=== PATIENT | male | born 1985 | race Caucasian/White ===

== ENCOUNTER 2019-05-27 09:59 | Outpatient (CLI) | payer BC, SELFPAY ==
[2019-05-27 10:34] LABS: Basophils % 0.4 %; Eosinophils # 0.2 10^3/uL (0.0-0.8); Eosinophils % 2.5 %; Hematocrit 42.2 % (42.0-52.0); Hemoglobin 14.8 g/dL (11.7-16.6); Lymphocytes # 1.9 10^3/uL (0.8-4.8); Lymphocytes % 27.6 %; Mean Corpuscular HGB Conc 35.1 g/dL (30.0-36.0); Mean Corpuscular Hemoglobin 30.3 pg (28.0-34.0); Mean Corpuscular Volume 86.5 fL (80-94); Mean Platelet Volume 9.9 fL (7.4-10.4); Monocytes # 0.5 10^3/uL (0.2-0.9); Monocytes % 7.8 %; Neutrophils # 4.2 10^3/uL (1.8-7.7); Neutrophils % 61.1 %; Nucleated Red Blood Cells % 0 %; Platelet Count 233 10^3/cmm (130-400); Red Blood Count 4.88 10^6/uL (4.1-5.3); Red Cell Distribution Width 12.6 % (12.1-15.1); White Blood Count 6.8 10^3/uL (4.0-10.0)
[2019-05-27 11:02] LABS: Alanine Aminotransferase 34 U/L (0-41); Albumin Level 4.6 g/dL (3.5-5.2); Alkaline Phosphatase 101 IU/L (40-130); Anion Gap 13.3 (5-19); Aspartate Amino Transferase 21 U/L (0-40); Blood Urea Nitrogen 18 mg/dL (6-20); Calcium 9.8 mg/dL (8.5-10.5); Carbon Dioxide 29 mmol/L (22-29); Chloride 101 mmol/L (98-107); Chol HDL Ratio 3.67 mg/dL (1.0-5.00); Cholesterol 165 mg/dL (0-200); Free T4 Free Thyroxine 1.13 ng/dL (0.82-1.77); Globulin 2.6 g/dL (1.3-4.6); Glomerular Filtration Rate 112.8 mL/min (90-130); Glucose 106 mg/dL (74-109); Glucose Fasting 106 mg/dL (74-109); HDL Cholesterol 45 mg/dL (60-100); LDL Cholesterol Calculated 90 mg/dL (50-129); Potassium 4.3 mmol/L (3.5-5.1); Sodium 139 mmol/L (136-145); T3 Free 4.4 PG/ML (2.0-4.4); Thyroid Stimulating Hormone 1.23 uIU/mL (0.27-4.20); Total Bilirubin 0.6 mg/dL (0.15-1.2); Total Protein 7.2 g/dL (6.6-8.7); Triglycerides 148 mg/dL (0-150)
== END 2019-05-27 10:00 | disposition home or self-care (01) ==
LOC: LAB 10:05
PROVIDERS: Family Provider Nurse Practitioner Family; PCP Physician Assistant Medical; Visit Provider Nurse Practitioner Family
DX: Z79.899 Other long term (current) drug therapy (principal)
CPT/HCPCS: 36415; 80053; 80061; 82947; 84439; 84443; 84481; 85025

== ENCOUNTER 2019-09-23 08:38 | Day surgery (SDC) | payer BC, SELFPAY ==
[2019-09-21 13:33] VITALS: BMI 29.2
[2019-09-23 08:57] VITALS: BP 137/85; PULSE 87; RESP 18; TEMP 36.7; O2SAT 96
--- NOTE | 2019-09-23 09:25 | W.PM.OPSUD ---
Surgery/Procedure H&P Update DATE OF PROCEDURE: September 23, 2019 DATE H&P PERFORMED: 09/03/19 H&P UPDATE INFORMATION: I have reviewed H&P completed within last 30 days, I have examined patient prior to procedure and No changes to prior documentation PREOP DIAGNOSIS: Chronic diarrhea, epigastric pain PLANNED PROCEDURE: Operation Date: 09/23/19 09:55 Proposed Procedures p EGD 25920 R10.9(Not Applicable) - Petar Newman MD s Colonoscopy 06310 R19.7(Not Applicable) - Petar Newman MD
[2019-09-23] MEDS: sodium chloride 0.9% 1,000 ML 30 ML IV (09:31)
--- NOTE | 2019-09-23 09:40 | ANES.PREANE2 ---
Pre-Anesthetic Assessment Pre-Anesthetic Assessment: Height/Weight: Height 1.78 m Weight 92.533 kg Temp Pulse Resp BP Pulse Ox 98.1 F 87 18 137/85 96 09/23/19 08:57 09/23/19 08:57 09/23/19 08:57 09/23/19 08:57 09/23/19 08:57 Preop Diagnosis: Chronic diarrhea, epigastric pain Proposed Procedure: Operation Date: 09/23/19 09:55 Proposed Procedures p EGD 14402 R10.9(Not Applicable) - Petar Newman MD s Colonoscopy 89756 R19.7(Not Applicable) - Petar Newman MD Last intake: Intake Last Liquid Date 09/22/19 Last Liquid Time 22:00 Last Solid Date 09/21/19 Social: Social History: No alcohol and No tobacco Exam: Pre-Anes Outpt Exam: alert, oriented x 3, clear to auscultation bilaterally and regular rate & rhythm Airway: Submandibular: WNL Cervical ROM: WNL MP: 2 Dentition: Other (teeth ok) History/ROS: No significant history except as noted Pulmonary: Pulmonary: None reported CV/HEM: CV/HEM: None reported : : None reported Hepatic: Hepatic: None reported GI: GI: GERD Metabolic: Metabolic: None reported Musc/skel: Musc/skel: OA/DJD Neuropsych: Neuropsych: Anxiety and Depression Anesthetic Plan: ASA status: 3 Anesthesia: Anesthesia Evaluation and MAC Risk of > 500 ml blood loss (7ml/kg in children): No Meds/Allergies Current Medications: Current Medications Generic Name Dose Route Start Last Admin Trade Name Freq PRN Reason Stop Dose Admin Sodium Chloride 1,000 mls @ 30 ml s/hr 09/23/19 08:45 09/23/19 09:31 Sodium Chloride 0.9% IV 30 mls/hr .Q24H TREMAYNE Administration PFSH Anesthesia PFSH: Medical History Depression with anxiety Diarrhea Surgical History History of incision and drainage Family History Family/Other Cancer PANCREATIC/LIVER Denies family history of Anesthesia complication Bleeding disorder Social History Smoking and tobacco status: never smoked Second hand smoke exposure: No Alcohol intake: never Adopted: No Caregiver/support person: Yes Lives independently: Yes Household members: spouse Housing: House Data Anesthesia Cardiac Studies: No Data to Display
--- NOTE | 2019-09-23 10:38 | ANE.PACU2 ---
Inpatient post-anesthesia follow up: Airway intact: Yes Vital signs: Temperature 98.1 F Pulse Rate 87 Respiratory Rate 18 Blood Pressure 137/85 Pulse Oximetry 96 Oxygen Delivery Me thod Room Air Oxygen Flow Rate Fraction of Inspir ed Oxygen Hydration adequate: Yes Nausea and vomiting: No Pain level: 1 Mental status: Baseline
== END 2019-09-23 11:12 | disposition home or self-care (01) ==
PROVIDERS: Visit Provider Surgery
PROC: 0DJ08ZZ Inspection of Upper Intestinal Tract, Via Natural or Artificial Opening Endoscopic (ICD-10-PCS; CPT 43235; principal; 2019-09-23 09:55)
PROC: 0DJD8ZZ Inspection of Lower Intestinal Tract, Via Natural or Artificial Opening Endoscopic (ICD-10-PCS; CPT 45378; 2019-09-23 09:55)
DX: K52.9 Noninfective gastroenteritis and colitis, unspecified (principal); R10.13 Epigastric pain; K29.70 Gastritis, unspecified, without bleeding; K21.9 Gastro-esophageal reflux disease without esophagitis; M19.90 Unspecified osteoarthritis, unspecified site
CPT/HCPCS: 12345; 43239; 45380; 82274; 83630; 87493; 87506; 88305; J2704; J7030

== ENCOUNTER 2021-06-09 20:19 | Emergency (ER) | payer BC, SELFPAY ==
[2021-06-09 20:25] VITALS: BP 146/79; PULSE 95; RESP 16; TEMP 36.5; O2SAT 98; BMI 29.6
[2021-06-09 20:56] LABS: Add Urine Microscopic? NO; Charge for UA Resulting for Rev
[2021-06-09 21:04] LABS: Bilirubin Urine Neg (Negative); Blood Urine Neg (Negative); Glucose Urine UA Norm (Normal); Ketones Urine Negative (Negative); Leukocyte Esterase Urine Negative (Negative); Nitrate Urine Negative (Negative); Protein Urine Neg (Negative); Specific Gravity, Urine 1.025 (1.005-1.030); Urine Appearance Clear (CLEAR); Urine Color Yellow (Yellow); Urobilinogen Urine Norm (Negative); pH Urine 5 (5-7)
--- NOTE | 2021-06-09 21:42 | W.ED.MALEGU ---
HPI - Male Genitourinary General: Chief complaint: Urogenital-Male Stated complaint: kidney stone Time Seen by Provider: 06/09/21 21:42 History of Present Illness: Mr. Luna is a 36-year-old gentleman with history of hypertension, psychiatric disorder who presents emergency department due to penile pain. He reports for a number of months now he has had slowly decreasing urinary stream and difficulty with initiation and incomplete emptying. He has subsequently developed a few episodes of sharp/burning pain in his penis. These occasionally occur with urination however also occur other times. There is no radiation of the testicles. He denies specific provoking factors. There is no skin lesions or penile discharge. He denies frequent history of similar. Intensity of symptoms when present is moderate to severe. He also has developed difficulty maintaining an erection. He previously was seen by PCP and had a reportedly normal urinalysis and blood work however symptoms have continued, no imaging was performed at that time. Onset (ago): day(s) Duration: intermittent Location: penis Severity: severe Quality: burning and sharp Relieving factors: none Exacerbating factors: none Review of Systems General: Reports: 10 or more systems reviewed and unremarkable except in HPI and below PFSH ED PFSH: Medical History Depression with anxiety Diarrhea Surgical History H/O esophagogastroduodenoscopy (09/23/19) History of incision and drainage Status post colonoscopy (09/23/19) Family History Family/Other Cancer PANCREATIC/LIVER Denies family history of Anesthesia complication Bleeding disorder Social History Smoking and tobacco status: never smoked Second hand smoke exposure: No Alcohol intake: never Adopted: No Caregiver/support person: Yes Lives independently: Yes Household members: spouse Housing: House Physical Exam Const: COMMON NORMALS: alert GENERAL APPEARANCE: cooperative and well developed HENMT: COMMON NORMALS: normocephalic and atraumatic HEAD & SCALP: normocephalic and atraumatic THROAT: posterior oropharynx normal Eye: COMMON NORMALS: conjunctivae normal CONJUNCTIVA: Yes conjunctivae normal SCLERA: sclerae normal Neck/C-Spine: COMMON NORMALS: supple GENERAL: Yes trachea midline Resp: COMMON NORMALS: normal respiratory effort EFFORT & INSPECTION: Yes able to speak in complete sentences Cardio: COMMON NORMALS: regular rate and regular rhythm RATE: regular rate RHYTHM: regular rhythm GI: COMMON NORMALS: Soft to palpation PALPATION: Yes Soft to palpation and No Tenderness to palpation present (GI) PERCUSSION: normal to percussion : COMMON NORMALS: Yes no CVA tenderness, Yes normal external exam, Yes Testes normal, Yes scrotum normal, Yes no scrotal swelling and Yes No hernias present BLADDER/KIDNEY EXAM: Yes no CVA tenderness MALE GROIN/PERINEUM EXAM: No Genital lesions present PENIS: uncircumcised, foreskin retracts, no paraphimosis, no phimosis and No Genital lesions present MEATUS: meatus normal TESTES: Yes testicular lie normal, No testicular swelling and No testicular tenderness OTHER: Performed with mobile development manager present. Back/Pelvis: COMMON NORMALS: no CVA tenderness Extremity: GENERAL: Yes normal exam except as noted and No edema Neuro: COMMON NORMALS: moves all extremities SENSORIUM/ORIENTATION: Yes alert and No Orientation impaired Psych: COMMON NORMALS: mental status grossly normal and Normal thought process present THOUGHT PROCESS: Normal thought process present Course ED course: - Patient was seen and evaluated by me at bedside - Patient placed on cardiac monitors, IV access obtained - Initial evaluation notable for exam as above - Labs notable for mild leukocytosis. Unremarkable chemistry panel. Urinalysis without evidence of urinary tract infection. - Imaging notable for no acute finding on CT abdomen pelvis to explain patient's symptoms. There is moderate stool in the rectum and colon. Incidental finding of chronic bilateral L4 pars fractures discussed - Upon serial reexamination after treatment the patient was similar - Based on patient history, evaluation, labs, and imaging as interpreted the most likely cause of the patient's condition is unclear though does not require further inpatient evaluation at this time. I will message case management for assistance in scheduling with urology. - The results of ED evaluation were discussed with the patient including prescriptions and/or symptomatic cares (if applicable) including appropriate and responsible use, followup plan, and return precautions. The patient verbalized understanding and felt safe for discharge. - Patient discharged in satisfactory condition. Note: Click bubbles or prepopulated chun in note writing are used for assistance with data collection and billing and are inherently more limited than narrative and other text portions of this note. Please use narrative for additional clinical history and defer to narrative/free test for any case of contradictory information. If information appears in only free text or click bubble it should be considered present or absent as reported. Please contact note residential mortgage underwriter for clarifications of clinical information or contradictory information. MDM is a brief summary, contradictory or erroneous seeming information should be clarified and full note should be reviewed. Vital Signs: Vital signs: Vital Signs Temperature 97.7 F 06/09/21 20:25 Pulse Rate 95 06/09/21 20:25 Respiratory Rate 18 06/09/21 23:27 Blood Pressure 146/79 06/09/21 20:25 Pulse Oximetry 98 06/09/21 20:25 MDM - Male Medical Decision Making 36-year-old male with months of decreased urinary stream and now intermittent penile pain without radiation to her associated testicular pain. Unremarkable genital exam without testicular tenderness or abnormality palpated. No evidence of urinary tract infection. CT without clear explanation for symptoms. Satisfactory for outpatient management and evaluation including follow-up with urology. Medical Records I reviewed the patient's medical records. Lab Data I reviewed the patient's lab results. : 06/09/21 22:05 06/09/21 22:05 Radiology Impressions Abdomen/Pelvis CT 06/09/21 21:55 IMPRESSION: 1. No acute abnormality identified in the abdomen or pelvis. 2. Moderate stool in the rectum and colon could indicate constipation in the right clinical setting. Laboratory Results WBC 10.9 10^3/uL (4.0-10.0) H 06/09/21 22: RBC 5.13 10^6/uL (4.1-5.3) 06/09/21 22:05 Hgb 15.7 g/dL (11.7-16.6) 06/09/21 22:05 Hct 44.8 % (42.0-52.0) 06/09/21 22:05 MCV 87.3 fl (80-94) 06/09/21 22:05 MCH 30.6 pg (28.0-34.0) 06/09/21 22: MCHC 35.0 g/dL (30.0-36.0) 06/09/21 22: RDW 12.3 % (12.1-15.1) 06/09/21 22:05 Plt Count 329 10^3/cmm (130-400) 06/09/21 22:05 MPV 9.2 fL (7.4-10.4) 06/09/21 22:05 Neut % (Auto) 67.6 % 06/09/21 22: Lymph % (Auto) 23.5 % 06/09/21 22: Parke % (Auto) 5.9 % 06/09/21 22: Eos % (Auto) 2.1 % 06/09/21 22:05 Baso % (Auto) 0.4 % 06/09/21:05 Neut # (Auto) 7.38 10^3/uL (1.8-7.7) 06/09/21: Lymph # (Auto) 2.6 10^3/uL (0.8-4.8) 06/09/21 22: Parke # (Auto) 0.7 10^3/uL (0.2-0.9) 06/09/21: Eos # (Auto) 0.2 10^3/uL (0.0-0.8) 06/09/21 22:05 Baso # (Auto) 0.0 10^3/uL (0.0-0.1) 06/09/21: Nucleated RBC % (auto) 0 % 06/09/21: Nucleated RBCs # 0.0 /100WBC 06/09/21 22:05 Sodium 138 mmol/L (136-145) 06/09/21 22: Potassium 4.1 mmol/L (3.5-5.1) 06/09/21 22: Chloride 99 mmol/L (98-107) 06/09/21 22:05 Carbon Dioxide 28 mmol/L (22-29) 06/09/21 22: Anion Gap 15.1 (5-19) 06/09/21 22: BUN 14 mg/dL (6-20) 06/09/21 22: Creatinine 0.9 mg/dL (0.7-1.2) 06/09/21 22: GFR Calculation 96.6 mL/min (90-130) 06/09/21 22: Glucose 92 mg/dL (65-115) 06/09/21 22:05 Calculated Osmolality 286 mOsm/kg (285-295) 06/09/21 22:05 Calcium 9.0 mg/dL (8.5-10.5) 06/09/21 22:05 Total Bilirubin 0.3 mg/dL (0.15-1.2) 06/09/21 22:05 AST 14 U/L (0-40) 06/09/21 22:05 ALT 15 U/L (0-41) 06/09/21 22:05 Alkaline Phosphatase 122 IU/L (40-130) 06/09/21 22:05 Total Protein 7.4 g/dL (6.6-8.7) 06/09/21 22:05 Albumin 4.8 g/dL (3.5-5.2) 06/09/21 22:05 Globulin 2.6 g/dL (1.3-4.6) 06/09/21 22:05 Lipase 32 U/L (13-60) 06/09/21 22:05 Urine Color Yellow (Yellow) 06/09/21 20:50 Urine Appearance Clear (CLEAR) 06/09/21 20:50 Urine pH 5 (5-7) 06/09/21 20:50 Ur Specific [place] 1.025 (1.005-1.030) 06/09/21 20:50 Urine Protein Neg (Negative) 06/09/21 20:50 Urine Glucose (UA) Norm (Normal) 06/09/21 20:50 Urine Ketones Negative (Negative) 06/09/21 20:50 Urine Blood Neg (Negative) 06/09/21 20:50 Urine Nitrate Negative (Negative) 06/09/21 20:50 Urine Bilirubin Neg (Negative) 06/09/21 20:50 Urine Urobilinogen Norm mg/dL (Negative) 06/09/21 20:50 Ur Leukocyte Esterase Negative (Negative) 06/09/21 20:50 Discharge Plan Discharge Patient Disposition: Home Clinical Impression: Penile pain, Leukocytosis Condition: Stable Prescriptions: No Action lithium carbonate 150 mg capsule 150 mg PO BID 0RF diclofenac sodium 75 mg tablet,delayed release (DR/EC) 75 mg PO BID 0RF loratadine [Claritin] 10 mg tablet 10 mg PO DAILY 0RF Sudafed PE 10 mg tablet 10 mg PO Q6H 0RF Protonix 40 mg tablet,delayed release (DR/EC) 40 mg PO DAILY 42 Days 3RF Discharge Orders: Discharge ED (Routine); Ordered 06/09/21 Ordered By: Maynor Valencia Discharge Diet: Usual diet Discharge Activity: Resume usual activity Patient Instructions: Constipation (ED) Activity Restrictions/Additional Instructions: Thank you for visiting the emergency department. You were seen and evaluated for penis pain. The exact cause of your symptoms is unclear. Laboratory studies were mostly unremarkable, you do have a minimal elevation in your white blood cell count however I do not see other evidence of infection and this is a nonspecific finding. Incidental findings of constipation and bilateral L4 pars fractures on CT imaging. I will message our employment evaluator/case manager to assist with scheduling outpatient follow-up with Dr. Rai our urologist. Please follow-up with your primary care provider. Please return to the emergency department for worsening symptoms, inability to urinate, testicle pain, or anything else that you are concerned about and feel needs emergency department evaluation. Coding Level of Care Code ED Agriculture Scientist for [employer] Fwd Exam Comprehensive
--- NOTE | 2021-06-09 21:46 | PC.NURSE ---
patient received with c/o pelvic pain that is sharp, states pain is intermittent. states pain with urination and states feels urgency then when trying to urinate it takes a while for the stream to start then is a weaker stream. concerned for prostate and kidney stones.
--- NOTE | 2021-06-09 21:55 | CTR_ITS ---
PROCEDURE INFORMATION: Exam: CT Abdomen And Pelvis With Contrast Exam date and time: 06/09/2021 9:55 PM Age: 36 years old Clinical indication: Pain; Other: Penis; Additional info: Pelvic pain, decreased urine stream, ? mass TECHNIQUE: Imaging protocol: Computed tomography of the abdomen and pelvis with contrast. Radiation optimization: All CT scans at this facility use at least one of these dose optimization techniques: automated exposure control; mA and/or kV adjustment per patient size (includes targeted exams where dose is matched to clinical indication); or iterative reconstruction. Contrast material: OMNI 300; Contrast volume: 95 ml; Contrast route: INTRAVENOUS (IV); COMPARISON: CR Chest 1 [place] [id number] 05/22/2018 8:14 PM RADIATION DOSE METRICS: Total DLP (mGy-cm): 1710.54 FINDINGS: Liver: Normal. No mass. Gallbladder and bile ducts: Partially contracted gallbladder. No visible wall thickening. The bile ducts are normal. Pancreas: Normal. No ductal dilation. Spleen: Normal. No splenomegaly. Adrenal glands: Normal. No mass. Kidneys and ureters: Normal. No hydronephrosis. Stomach and bowel: Moderate amount of stool in the rectum. Scattered gas and stool throughout the colon. No wall thickening. The stomach and small bowel are unremarkable. No wall thickening or obstruction. Appendix: The appendix is visualized and is normal. Intraperitoneal space: Unremarkable. No free air. No significant fluid collection. Vasculature: Unremarkable. No abdominal aortic aneurysm. Lymph nodes: Unremarkable. No enlarged lymph nodes. Urinary bladder: Unremarkable as visualized. Reproductive: Coarse calcifications within a normal sized prostate. Bones/joints: Chronic bilateral L4 pars fractures. No subluxation. No acute fracture. Soft tissues: Unremarkable. CT/CT abdomen pelvis w con* [id number] IMPRESSION: 1. No acute abnormality identified in the abdomen or pelvis. 2. Moderate stool in the rectum and colon could indicate constipation in the right clinical setting.
[2021-06-09 22:14] LABS: Basophils % 0.4 %; Eosinophils # 0.2 10^3/uL (0.0-0.8); Eosinophils % 2.1 %; Hematocrit 44.8 % (42.0-52.0); Hemoglobin 15.7 g/dL (11.7-16.6); Lymphocytes # 2.6 10^3/uL (0.8-4.8); Lymphocytes % 23.5 %; Mean Corpuscular Hemoglobin 30.6 pg (28.0-34.0); Mean Corpuscular Volume 87.3 fl (80-94); Mean Platelet Volume 9.2 fL (7.4-10.4); Monocytes # 0.7 10^3/uL (0.2-0.9); Monocytes % 5.9 %; Neutrophils # 7.38 10^3/uL (1.8-7.7); Neutrophils % 67.6 %; Nucleated Red Blood Cells % 0 %; Platelet Count 329 10^3/cmm (130-400); Red Blood Count 5.13 10^6/uL (4.1-5.3); Red Cell Distribution Width 12.3 % (12.1-15.1); White Blood Count 10.9 10^3/uL (4.0-10.0)
[2021-06-09] MEDS: iohexol 300 mg/mL 100 mL Btl IV (22:21)
[2021-06-09 22:30] LABS: Alanine Aminotransferase 15 U/L (0-41); Albumin Level 4.8 g/dL (3.5-5.2); Alkaline Phosphatase 122 IU/L (40-130); Anion Gap 15.1 (5-19); Aspartate Amino Transferase 14 U/L (0-40); Blood Urea Nitrogen 14 mg/dL (6-20); Carbon Dioxide 28 mmol/L (22-29); Chloride 99 mmol/L (98-107); Globulin 2.6 g/dL (1.3-4.6); Glomerular Filtration Rate 96.6 mL/min (90-130); Glucose 92 mg/dL (65-115); Lipase 32 U/L (13-60); Osmolality Calculated 286 mOsm/kg (285-295); Potassium 4.1 mmol/L (3.5-5.1); Sodium 138 mmol/L (136-145); Total Bilirubin 0.3 mg/dL (0.15-1.2); Total Protein 7.4 g/dL (6.6-8.7)
[2021-06-09 23:27] VITALS: RESP 18
--- NOTE | 2021-06-11 11:47 | DCPLANNER ---
Addendum entered by Kia Mcnulty 08/29/21 20:30: Patient had a follow up appointment scheduled with Dr. Rai - appointment was cancelled. Addendum entered by Kia Mcnulty 06/22/21 21:28: Patient has a follow up appointment scheduled for , August 23, 2021 at 9:[address] Rai. Clinic will call patient with appointment information. Original Note: reception manager had message to schedule a follow up appointment for patient with Dr. Rai. reception manager emailed patients information to the Wojciech Jj and Julie at the office of Dr. Rai. Patients information will be printed and reviewed. Clinic will call patient with appointment information.
== END 2021-06-09 23:29 | disposition home or self-care (01) ==
PROVIDERS: Emergency Provider Emergency Medicine
DX: N48.89 Other specified disorders of penis (principal); D72.829 Elevated white blood cell count, unspecified
CPT/HCPCS: 74177; 80053; 81003; 83690; 85025; 87491; 87591; 99283; Q9967

== ENCOUNTER 2021-06-12 19:22 | Emergency (ER) | payer BC, SELFPAY ==
--- NOTE | 2021-06-12 19:26 | ECG_ITS ---
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 Measurements Intervals [place] Rate: 78 P: 45 KS: 150 QRS: 3 QRSD: 101 T: 18 QT: 341 QTc: 388 Interpretive Statements SINUS RHYTHM POSSIBLE RIGHT VENTRICULAR CONDUCTION DELAY [RSR (QR) IN V1/V2] MODERATE VOLTAGE CRITERIA FOR LVH, CONSIDER NORMAL VARIANT [MEETS CRITERIA IN ONE OF: R(aVL), S(V1), R(V5), R(V5/V6)+S(V1)] No previous ECG available for comparison Electronically Signed On 06-13-2021 9:16:57 ACCOUNTS PAYABLE BOOKKEEPER by Hayde Gorman M.D. [id number]
--- NOTE | 2021-06-12 19:26 | XRR_ITS ---
PROCEDURE INFORMATION: Exam: XR Chest Exam date and time: 06/12/2021 7:26 PM Age: 36 years old Clinical indication: Chest wall pain; Additional info: Cp TECHNIQUE: Imaging protocol: XR of the chest. Views: 1 view. COMPARISON: CR Chest 1 [place] [id number] 05/22/2018 8:14 PM FINDINGS: Lungs: Lungs are clear bilaterally. Pleural spaces: No pleural effusion. No pneumothorax. Heart/Mediastinum: The cardiac silhouette and mediastinal contours are unremarkable. Bones/joints: Unremarkable for age. XR/XR chest 1V portable [id number] IMPRESSION: No acute cardiopulmonary process.
[2021-06-12 19:33] VITALS: BP 142/94; PULSE 78; RESP 14; TEMP 36.4; O2SAT 97; BMI 30.5
[2021-06-12 20:56] LABS: Basophils % 0.4 %; Eosinophils # 0.3 10^3/uL (0.0-0.8); Hematocrit 43.9 % (42.0-52.0); Hemoglobin 15.5 g/dL (11.7-16.6); Lymphocytes # 2.5 10^3/uL (0.8-4.8); Mean Corpuscular HGB Conc 35.3 g/dL (30.0-36.0); Mean Corpuscular Hemoglobin 30.5 pg (28.0-34.0); Mean Corpuscular Volume 86.4 fl (80-94); Mean Platelet Volume 9.2 fL (7.4-10.4); Monocytes # 0.7 10^3/uL (0.2-0.9); Monocytes % 6.4 %; Neutrophils # 6.55 10^3/uL (1.8-7.7); Neutrophils % 64.8 %; Nucleated Red Blood Cells % 0 %; Platelet Count 310 10^3/cmm (130-400); Red Blood Count 5.08 10^6/uL (4.1-5.3); Red Cell Distribution Width 12.5 % (12.1-15.1); White Blood Count 10.1 10^3/uL (4.0-10.0)
[2021-06-12 21:14] LABS: Albumin Level 4.7 g/dL (3.5-5.2); Alkaline Phosphatase 119 IU/L (40-130); Blood Urea Nitrogen 13 mg/dL (6-20); Calcium 8.7 mg/dL (8.5-10.5); Carbon Dioxide 28 mmol/L (22-29); Chloride 99 mmol/L (98-107); Globulin 2.4 g/dL (1.3-4.6); Glomerular Filtration Rate 110.7 mL/min (90-130); Glucose 114 mg/dL (65-115); Osmolality Calculated 289 mOsm/kg (285-295); Sodium 139 mmol/L (136-145); Total Bilirubin 0.3 mg/dL (0.15-1.2); Total Protein 7.1 g/dL (6.6-8.7)
[2021-06-12 21:15] LABS: Troponin(5th) Baseline 6 ng/L (0-15)
[2021-06-12 21:27] LABS: Anion Gap 15.8 (5-19); Potassium 3.8 mmol/L (3.5-5.1)
[2021-06-12 22:07] LABS: Alanine Aminotransferase 17 U/L (0-41); Aspartate Amino Transferase 19 U/L (0-40)
--- NOTE | 2021-06-12 22:32 | ED_ITS ---
HPI - Chest Pain General: Chief Complaint: Chest Pain Stated Complaint: high BP, headache, vision problems, CP Time Seen by Provider: 06/12/21 22:27 History of Present Illness: 36-year-old male patient comes in today with complaints of mid chest sternal pain and elevated blood pressure. Patient reports he has been having some difficulty with his blood pressure and was started on hydrochlorothiazide recently. Patient notes that his blood pressures actually been higher since starting the hydrochlorothiazide. On exam patient appears nontoxic. Patient appears in no pain. MD complaint: chest discomfort Onset (ago): hour(s) Timing of current episode: episodic Prior episodes: No Pain location: parasternal Pain radiation: none Severity: mild Quality: dull Relieving factors: nothing Exacerbating factors: palpation Review of Systems General: Reports: 10 or more systems reviewed and unremarkable except in HPI and below Card: Reports: chest pain PFSH ED PFSH: Medical History Depression with anxiety Diarrhea Surgical History H/O esophagogastroduodenoscopy (09/23/19) History of incision and drainage Status post colonoscopy (09/23/19) Family History Family/Other Cancer PANCREATIC/LIVER Denies family history of Anesthesia complication Bleeding disorder Social History Smoking and tobacco status: never smoked Second hand smoke exposure: No Alcohol intake: never Adopted: No Caregiver/support person: Yes Lives independently: Yes Household members: spouse Housing: House Physical Exam Const: COMMON NORMALS: patient oriented x3 HENMT: COMMON NORMALS: atraumatic HEAD & SCALP: atraumatic Eye: COMMON NORMALS: Equal, round and reactive pupils present and EOMs intact bilaterally PUPIL: Yes Equal, round and reactive pupils present Neck/C-Spine: COMMON NORMALS: full ROM Chest: CHEST: Yes tenderness (Midsternal) Resp: COMMON NORMALS: normal respiratory effort and clear to auscultation bilaterally AUSCULTATION: clear to auscultation bilaterally Cardio: COMMON NORMALS: regular rate and regular rhythm RATE: regular rate RHYTHM: regular rhythm GI: COMMON NORMALS: non-tender Extremity: COMMON NORMALS: normal to inspection and no pedal edema Neuro: PATRICK COMA SCALE: document GCS findings Patrick coma scale eye opening: Spontaneous Patrick coma scale verbal response: Orientated Patrick coma scale motor response: Obey commands Patrick coma scale total score: 15 COMMON NORMALS: patient oriented x3 Psych: COMMON NORMALS: cooperative Skin: COMMON NORMALS: no rashes or lesions noted GENERAL SKIN EXAM: no rashes or lesions noted Course Vital Signs: Vital signs: Vital Signs Temperature 97.6 F 06/12/21 19:33 Pulse Rate 78 06/12/21 19:33 Respiratory Rate 14 06/12/21 19:33 Blood Pressure 142/94 06/12/21 19:33 Pulse Oximetry 97 06/12/21 19:33 MDM - Chest Pain Medical Decision Making 36-year-old male patient comes in with sternal chest discomfort. On exam respirations are even lungs are clear to auscultation. Abdomen soft nontender. I can elicit pain with pressure to the left mid sternal border. No edema is noted in the extremities. Vital signs are normal except for some mild elevation of blood pressure with a 142 systolic. Differential diagnosis includes ACS, musculoskeletal pain, hypertension, CHF. Laboratory values were unremarkable, troponin was normal. EKG was normal sinus rhythm. Chest x-ray was nonacute. Patient was given 1 clonidine 0.1 mg to help with his blood pressure. Patient was recommended to follow-up with primary care in the morning at his scheduled appointment for further evaluation and medication adjustment. Patient reported understanding agreed to plan. Lab Data : 06/12/21 20:49 06/12/21 20:49 Radiology Impressions Chest X-Ray 06/12/21 19:26 IMPRESSION: No acute cardiopulmonary process. Laboratory Results WBC 10.1 10^3/uL (4.0-10.0) H 06/12/21 20:49 RBC 5.08 10^6/uL (4.1-5.3) 06/12/21 20:49 Hgb 15.5 g/dL (11.7-16.6) 06/12/21 20:49 Hct 43.9 % (42.0-52.0) 06/12/21 20:49 MCV 86.4 fl (80-94) 06/12/21 20:49 MCH 30.5 pg (28.0-34.0) 06/12/21 20:49 MCHC 35.3 g/dL (30.0-36.0) 06/12/21 20:49 RDW 12.5 % (12.1-15.1) 06/12/21 20:49 Plt Count 310 10^3/cmm (130-400) 06/12/21 20:49 MPV 9.2 fL (7.4-10.4) 06/12/21 20:49 Neut % (Auto) 64.8 % 06/12/21 20:49 Lymph % (Auto) 25.0 % 06/12/21 20:49 Carson % (Auto) 6.4 % 06/12/21 20:49 Eos % (Auto) 3.0 % 06/12/21: Baso % (Auto) 0.4 % 06/12/21: Neut # (Auto) 6.55 10^3/uL (1.8-7.7) 06/12/21: Lymph # (Auto) 2.5 10^3/uL (0.8-4.8) 06/12/21 20:49 Carson # (Auto) 0.7 10^3/uL (0.2-0.9) 06/12/21 20:49 Eos # (Auto) 0.3 10^3/uL (0.0-0.8) 06/12/21 20:49 Baso # (Auto) 0.0 10^3/uL (0.0-0.1) 06/12/21 20: Nucleated RBC % (auto) 0 % 06/12/21: Nucleated RBCs # 0.0 /100WBC 06/12/21 20:49 Sodium 139 mmol/L (136-145) 06/12/21 20:49 Potassium 3.8 mmol/L (3.5-5.1) 06/12/21 20:49 Chloride 99 mmol/L (98-107) 06/12/21 20:49 Carbon Dioxide 28 mmol/L (22-29) 06/12/21 20:49 Anion Gap 15.8 (5-19) 06/12/21 20:49 BUN 13 mg/dL (6-20) 06/12/21 20:49 Creatinine 0.8 mg/dL (0.7-1.2) 06/12/21 20:49 GFR Calculation 110.7 mL/min (90-130) 06/12/21 20:49 Glucose 114 mg/dL (65-115) 06/12/21 20:49 Calculated Osmolality 289 mOsm/kg (285-295) 06/12/21 20:49 Calcium 8.7 mg/dL (8.5-10.5) 06/12/21 20:49 Total Bilirubin 0.3 mg/dL (0.15-1.2) 06/12/21 20:49 AST 19 U/L (0-40) 06/12/21 20:49 ALT 17 U/L (0-41) 06/12/21 20:49 Alkaline Phosphatase 119 IU/L (40-130) 06/12/21 20:49 Troponin T Baseline 6 ng/L (0-15) 06/12/21 20:49 Total Protein 7.1 g/dL (6.6-8.7) 06/12/21 20:49 Albumin 4.7 g/dL (3.5-5.2) 06/12/21 20:49 Globulin 2.4 g/dL (1.3-4.6) 06/12/21 20:49 EKG Data EKG 1: EKG interpretation date: 06/12/21 EKG interpretation time: 22:46 Interpretation: EKG shows a sinus rhythm with a regular rate at [address] elevation or ectopy is noted. No prior exam was available for comparison. Discharge Plan Discharge Patient Disposition: Home Clinical Impression: Atypical chest pain Hypertension Qualifiers: Hypertension type: unspecified Qualified Code(s): I10 - Essential (primary) hypertension Condition: Stable Prescriptions: No Action lithium carbonate 150 mg capsule 150 mg PO BID 0RF diclofenac sodium 75 mg tablet,delayed release (DR/EC) 75 mg PO BID 0RF loratadine [Claritin] 10 mg tablet 10 mg PO DAILY 0RF Sudafed PE 10 mg tablet 10 mg PO Q6H 0RF Protonix 40 mg tablet,delayed release (DR/EC) 40 mg PO DAILY 42 Days 3RF Discharge Orders: Discharge ED (Routine); Ordered 06/12/21 Ordered By: Ethan Ortiz Discharge Diet: Usual diet Discharge Activity: Increase activity as tolerated Patient Instructions: Costochondritis (ED) Activity Restrictions/Additional Instructions: Use acetaminophen for pain. Drink plenty of water with medications. Follow-up with primary care regarding blood pressure. Return to ER for new concerns. Coding Level of Care Code ED Ripening Room Operator for Maci Smith History Expanded Problem Focused Exam Detailed Medical Decision Making Moderate Complexity Time Spent (min) 30
[2021-06-12 22:49] VITALS: BP 145/88
[2021-06-12] MEDS: cloNIDine 0.1 mg Tablet PO (22:49)
[2021-06-12 22:50] VITALS: BP 145/88; PULSE 84; RESP 16; O2SAT 97
[2021-06-12 23:06] VITALS: BP 139/85; PULSE 94; RESP 16; O2SAT 98
[2021-06-12 23:16] LABS: Troponin 5 2HR Delta 0 ABS# (0-10)
== END 2021-06-12 23:07 | disposition home or self-care (01) ==
PROVIDERS: Emergency Medicine; Emergency Provider Nurse Practitioner Family
DX: R07.89 Other chest pain (principal); I10 Essential (primary) hypertension
CPT/HCPCS: 71045; 80053; 84484; 85025; 93005; 99284